=== PATIENT | female | born 1950 | race Caucasian/White ===

== ENCOUNTER → 2017-01-20 | Outpatient (CLI) | payer MEDICAID ==
[~2017-01-20] MED LIST: LEVO25TA4 PO; [UNRECOGNIZED DRUG - REMARK] PO
== END | disposition home or self-care (01) ==
LOC: CFH 11:04
PROVIDERS: ATTEND Nurse Practitioner Family
DX: M25.761 Osteophyte, right knee (principal); M25.762 Osteophyte, left knee
CPT/HCPCS: 73565

== ENCOUNTER → 2017-12-02 | Outpatient (CLI) | payer MEDICAID | END | disposition home or self-care (01) | LOC: CFH 11:44 | PROVIDERS: ATTEND Nurse Practitioner Family | DX: N20.0 Calculus of kidney (principal); K59.00 Constipation, unspecified | CPT/HCPCS: 74021 ==

== ENCOUNTER → 2018-06-26 | Outpatient (CLI) | payer MEDICARE, MEDICAID ==
[~2018-06-26] MED LIST changes: +LEVO75TA PO; +NITR50CA PO; +PANT40TA5 PO; +POLY17PO5 PO; +PRAV20TA2 PO; +QUET400T4 PO; +SERT50TA5 PO; +TRAM50TA2 PO; +ZOLP-413 PO
== END | disposition home or self-care (01) ==
LOC: CFH 12:21
PROVIDERS: ATTEND Nurse Practitioner Family
DX: N64.4 Mastodynia (principal)
CPT/HCPCS: 77066; G0279

== ENCOUNTER 2018-10-18 14:13 | Emergency (ER) | payer MEDICARE, MEDICAID ==
[~2018-10-18] VITALS: Ht 149.9 cm; Wt 80.5 kg
[~2018-10-18 14:13] MED LIST changes: +SERT50TA28 PO; -SERT50TA5 PO
[2018-10-18 14:18] VITALS: BP 130/68
--- NOTE | 2018-10-18 14:31 | NUR ---
THIS IS A B[place] SPEAKING 68 YEAR OLD FEMALE WHO C/O OF ABD PAIN, BACK PAIN AND DYSURIA. AT BS. OBTAINED URINE SAMPLE
[2018-10-18 14:47] LABS: MICROSCOPIC AUTO
[2018-10-18 14:48] LABS: CULTURE INDICATED? YES
[2018-10-18 14:52] LABS: BASOPHILS # (AUTO) 0.04 x10^3/uL (0-0.1); BASOPHILS % (AUTO) 1 % (0-1); EOSINOPHILS # (AUTO) 0.03 x10^3/uL (0-0.4); EOSINOPHILS % (AUTO) 1 % (1-7); LYMPHOCYTES # (AUTO) 2.46 x10^3/uL (1-3.4); LYMPHOCYTES % (AUTO) 32 % (22-44); MD NO; MEAN CORPUSCULAR HEMOGLOBIN 30.2 pg (27.0-34.8); MEAN CORPUSCULAR HGB CONC 32.6 g/dL (32.4-35.8); MEAN CORPUSCULAR VOLUME 92.5 fL (80-100); MEAN PLATELET VOLUME 7.2 fL (7.4-10.4); MONOCYTES # (AUTO) 0.65 x10^3/uL (0.2-0.8); MONOCYTES % (AUTO) 9 % (2-9); NEUTROPHILS # (AUTO) 4.43 x10^3/uL (1.8-6.8); NEUTROPHILS % (AUTO) 58 % (42-75); PLATELET COUNT 388 x10^3/uL (130-400); RED BLOOD COUNT 4.14 x10^6/uL (3.82-5.3); RED CELL DISTRIBUTION WIDTH 15.4 % (9.6-15.2)
[2018-10-18 14:54] LABS: ALANINE AMINOTRANSFERASE 32 U/L (12-78); ALBUMIN 3.6 g/dL (3.4-5.0); ANION GAP 9 mmol/L (5-15); CALCIUM 7.1 mg/dL (8.5-10.1); CHLORIDE 104 mmol/L (98-107); CREATININE 1.01 mg/dL (0.55-1.02)
[2018-10-18 14:57] LABS: ALKALINE PHOSPHATASE 95 U/L (45-117); BILIRUBIN,TOTAL 0.3 mg/dL (0.2-1.0); TOTAL PROTEIN 7.9 g/dL (6.4-8.2)
--- NOTE | 2018-10-18 15:45 | NUR ---
PT C/O OF PAIN, ASKED DR. RANGEL FOR MEDICATIONS, ORDERS RECEIVED
[2018-10-18] MEDS ORDERED: PHENAZOPYRIDINE 200 MG TABLET ONE (15:46)
[2018-10-18] MEDS ORDERED: HYDROcodone/APAP 5/325 TABLET ONE (15:47)
[2018-10-18] MEDS ORDERED: PHENAZOPYRIDINE 200 MG TABLET PO ONE (16:00)
[2018-10-18] MEDS ORDERED: HYDROcodone/APAP 5/325 TABLET PO ONE (16:00)
--- NOTE | 2018-10-18 16:17 | NUR ---
Patient/Caregiver given discharge instructions and they have confirmed that they understand the instructions. Patient ambulatory with steady gait.
== END 2018-10-18 16:21 ==
LOC: ED 14:41
DX: K59.00 Constipation, unspecified (principal); N30.00 Acute cystitis without hematuria; J45.909 Unspecified asthma, uncomplicated
CPT/HCPCS: 36415; 80053; 81001; 83605; 83690; 85025; 87086; 99283

== ENCOUNTER → 2018-11-25 | Outpatient (CLI) | payer MEDICARE, MEDICAID | END | disposition home or self-care (01) | LOC: CFH 10:17 | PROVIDERS: ATTEND Physician Assistant | DX: Z13.820 Encounter for screening for osteoporosis (principal); M81.0 Age-related osteoporosis without current pathological fracture; K59.00 Constipation, unspecified; R14.0 Abdominal distension (gaseous); Z78.0 Asymptomatic menopausal state | CPT/HCPCS: 76830; 77080 ==

== ENCOUNTER 2019-02-16 13:25 | Outpatient (CLI) | payer MEDICARE, MEDICAID | END 2019-02-16 23:59 | disposition home or self-care (01) | LOC: CFH 13:25 | PROVIDERS: ATTEND Physician Assistant | DX: N13.39 Other hydronephrosis (principal); M47.816 Spondylosis without myelopathy or radiculopathy, lumbar region | CPT/HCPCS: 74177; Q9967 ==

== ENCOUNTER → 2019-06-17 | Outpatient (CLI) | payer MEDICARE, MEDICAID | END | disposition home or self-care (01) | LOC: STAR 14:02 | PROVIDERS: ATTEND Orthopaedic Surgery | DX: Z01.818 Encounter for other preprocedural examination (principal); S83.281A Other tear of lateral meniscus, current injury, right knee, initial encounter; S83.241A Other tear of medial meniscus, current injury, right knee, initial encounter; X58.XXXA Exposure to other specified factors, initial encounter; Y93.89 Activity, other specified; Y92.89 Other specified places as the place of occurrence of the external cause; Y99.8 Other external cause status | CPT/HCPCS: 93005 ==

== ENCOUNTER 2019-06-24 05:29 | Day surgery (SDC) | payer MEDICARE, MEDICAID ==
[~2019-06-24] VITALS: Ht 149.9 cm; Wt 76.0 kg
[2019-06-24 06:03] VITALS: BP 135/85
[2019-06-24] MEDS ORDERED: LIDOCAINE/PF 1%-EPI 1:200K, 30 ML ONE (06:10)
[2019-06-24] MEDS ORDERED: EPINEPHRINE 1 MG/ML, 1ML ONE (06:10)
[2019-06-24] MEDS ORDERED: BUPIVACAINE/PF 0.5% ONE (06:10)
[2019-06-24] MEDS ORDERED: LACTATED RINGERS 1,000 ML IV SCH (06:25)
[2019-06-24] MEDS ORDERED: MIDAZOLAM 1 MG/ML, 2ML ONE (06:27)
[2019-06-24] MEDS ORDERED: FENTANYL PF 100 MCG/2ML ONE ×2 (06:27→07:53)
[2019-06-24] MEDS ORDERED: SCOPOLAMINE PATCH, 1.5MG PATCH.TD72 TD ONE (06:30)
[2019-06-24] MEDS ORDERED: ACETAMINOPHEN 500 MG TABLET PO ONE (06:30)
[2019-06-24] MEDS ORDERED: GABAPENTIN 300 MG CAPSULE PO ONE (06:30)
[2019-06-24] MEDS ORDERED: DEXAMETHASONE 4 MG/ML, 1ML ONE (06:47)
[2019-06-24] MEDS ORDERED: PROPOFOL 10 MG/ML, 20ML ONE (06:47)
[2019-06-24] MEDS ORDERED: CEFAZOLIN 1,000 MG ONE (06:47)
[2019-06-24] MEDS ORDERED: ONDANSETRON 2MG/ML, 2ML ONE (06:47)
[2019-06-24] MEDS ORDERED: PROMETHAZINE 25 MG/ML, 1ML IV PRN (07:00)
[2019-06-24] MEDS ORDERED: ONDANSETRON 2MG/ML, 2ML IV PRN (07:00)
[2019-06-24] MEDS ORDERED: PROMETHAZINE 25 MG SUPP PR PRN (07:00)
[2019-06-24] MEDS ORDERED: ONDANSETRON ODT 8 MG PO PRN (07:00)
[2019-06-24] MEDS ORDERED: HYDROmorphone 2 MG/ML, 1ML IVPush PRN (07:00)
[2019-06-24] MEDS ORDERED: OXYcodone 5 MG/5 ML ORAL.SOL UDC ONE (07:47)
[2019-06-24] MEDS: OXYcodone 5 MG/5 ML ORAL.SOL UDC PO PRN ×2 (07:54→09:09)
[2019-06-24] MEDS: FENTANYL PF 100 MCG/2ML IV PRN ×2 (07:56→08:03)
[2019-06-24] MEDS ORDERED: MEPERIDINE/PF 25MG/ML,1ML ONE (08:03)
[2019-06-24] MEDS ORDERED: MEPERIDINE/PF 25MG/0.5ML IVPush PRN (08:30)
[2019-06-24] MEDS ORDERED: PANTOPROZOLE 40MG TABLET PO SCH (09:00)
[2019-06-24] MEDS ORDERED: PRAVASTATIN 20 MG TABLET PO SCH (21:00)
[2019-06-24] MEDS ORDERED: QUETIAPINE FUMARATE 800 MG PO SCH (21:00)
[2019-06-24] MEDS ORDERED: ZOLPIDEM 5MG TABLET PO SCH (21:00)
[2019-06-25] MEDS ORDERED: LEVOTHYROXINE 75 MCG TABLET PO SCH (06:00)
== END 2019-06-24 11:30 | disposition home or self-care (01) ==
LOC: OUT 05:29
PROVIDERS: ATTEND Orthopaedic Surgery
DX: S83.231A Complex tear of medial meniscus, current injury, right knee, initial encounter (principal); S83.271A Complex tear of lateral meniscus, current injury, right knee, initial encounter; M94.261 Chondromalacia, right knee; E03.9 Hypothyroidism, unspecified; X58.XXXA Exposure to other specified factors, initial encounter; Y93.89 Activity, other specified; Y92.89 Other specified places as the place of occurrence of the external cause; Y99.8 Other external cause status
CPT/HCPCS: 29880; J0171; J0690; J1100; J2175; J2250; J2405; J2704; J3010; J3490; J7120

== ENCOUNTER 2019-07-20 12:10 | Emergency (ER) | payer MEDICARE, MEDICAID ==
[~2019-07-20] VITALS: Ht 152.4 cm; Wt 77.3 kg
[2019-07-20 12:24] VITALS: BP 126/74
[2019-07-20 13:03] LABS: MICROSCOPIC INDICATED
[2019-07-20 13:20] LABS: CULTURE INDICATED? YES
[2019-07-20] MEDS ORDERED: SODIUM CHLORIDE FLUSH 10ML SYR IVF ONE (13:30)
[2019-07-20 13:44] LABS: BASOPHILS # (AUTO) 0.06 x10^3/uL (0-0.1); BASOPHILS % (AUTO) 1 % (0-1); EOSINOPHILS # (AUTO) 0.25 x10^3/uL (0-0.4); EOSINOPHILS % (AUTO) 4 % (1-7); LYMPHOCYTES # (AUTO) 2.26 x10^3/uL (1-3.4); LYMPHOCYTES % (AUTO) 34 % (22-44); MD NO; MEAN CORPUSCULAR HEMOGLOBIN 31.8 pg (27.0-34.8); MEAN CORPUSCULAR HGB CONC 33.2 g/dL (32.4-35.8); MEAN CORPUSCULAR VOLUME 95.6 fL (80-100); MEAN PLATELET VOLUME 7.6 fL (7.4-10.4); MONOCYTES # (AUTO) 0.75 x10^3/uL (0.2-0.8); MONOCYTES % (AUTO) 11 % (2-9); NEUTROPHILS # (AUTO) 3.43 x10^3/uL (1.8-6.8); NEUTROPHILS % (AUTO) 51 % (42-75); PLATELET COUNT 328 x10^3/uL (130-400); RED BLOOD COUNT 4.01 x10^6/uL (3.82-5.3); RED CELL DISTRIBUTION WIDTH 16.2 % (9.6-15.2)
[2019-07-20 13:55] LABS: ALBUMIN 3.6 g/dL (3.4-5.0); ANION GAP 7 mmol/L (5-15); CALCIUM 8.3 mg/dL (8.5-10.1); CHLORIDE 107 mmol/L (98-107)
[2019-07-20 13:58] LABS: ALANINE AMINOTRANSFERASE 24 U/L (12-78); ALKALINE PHOSPHATASE 77 U/L (45-117); BILIRUBIN,TOTAL 0.4 mg/dL (0.2-1.0); CREATININE 0.73 mg/dL (0.55-1.02); TOTAL PROTEIN 8.1 g/dL (6.4-8.2)
[2019-07-20] MEDS ORDERED: MAALOX/HYOSCYAMINE/LIDOCAINE 45 ML BTL PO ONE (14:00)
[2019-07-20] MEDS ORDERED: MAALOX/HYOSCYAMINE/LIDOCAINE 45 ML BTL ONE (14:03)
--- NOTE | 2019-07-20 14:07 | NUR ---
PT PROVIDED WITH WARM BLANKETS, ATTACHED TO MONITORS, AND MEDICATED PER MAR. DENIES ANY FURTHER NEEDS AT THIS TIME. CALL LIGHT IN REACH.
[2019-07-20] MEDS ORDERED: KETOROLAC 60 MG/2 ML ONE (14:37)
[2019-07-20] MEDS ORDERED: KETOROLAC 30 MG/1 ML IM ONE (15:00)
--- NOTE | 2019-07-20 15:13 | NUR ---
PT STATES THAT PAIN AFTER GI COCKTAIL DROPPED FROM 12/14 TO 10/14. GIVEN TORADOL IM PER SEP. WILL REEVALUATE. PT DENIES ANY NEEDS AT THIS TIME. CALL LIGHT IN REACH.
--- NOTE | 2019-07-20 17:45 | NUR ---
TASK RN: DC EDUCATION PROVIDED/TRANSLATED BY KYLIE Eller/ MICHEAL, PT DEMONSTRATES UNDERSTANDING. PT AMBULATED STEADILY TO DC WITH RN AND FAMILY.
== END 2019-07-20 17:59 | disposition home or self-care (01) ==
LOC: ED 14:19
DX: K29.00 Acute gastritis without bleeding (principal); N30.00 Acute cystitis without hematuria; J45.909 Unspecified asthma, uncomplicated; Z87.11 Personal history of peptic ulcer disease
CPT/HCPCS: 36415; 74176; 76700; 80053; 81001; 85025; 87077; 87086; 87186; 96372; 99284; J1885